=== PATIENT | male | born 1985 | race American Indian/Alaskan Native ===

== ENCOUNTER 2017-07-03 17:04 | Emergency (ER) | payer MEDICAID, OTHER ==
[2017-07-03 17:05] VITALS: BMI 34.2
--- NOTE | 2017-07-03 17:26 | ED PDOC ---
Arrival/HPI - General Time Seen by Provider: 07/03/17 17:25 Historian: Patient - History of Present Illness Narrative History of Present Illness (Text): 07/03/17 17:26 31 year old male, pmh including lower back pain, nkda, complaining of rt. flank pain started early this morning around 10am with no fall or trauma. aching and sharp pain, non-radiating, no pain medication taken at home, no urinary symptoms, no night sweat, no palpitation, no hematuria, no testicular pain, no abdominal pain, no other medical or psychological complaints. Past Medical History - Provider Review Nursing Documentation Reviewed: Yes - Infectious Disease Hx of Infectious Diseases: None - Tetanus Immunization Tetanus Immunization: Unknown - Past Medical History Past Medical History: No Previous - Psychiatric Hx Depression: No Hx Emotional Abuse: No Hx Physical Abuse: No Hx Substance Use: No - Surgical History Hx Cholecystectomy: Yes Hx Orthopedic Surgery: Yes (RIGHT 1ST DIGIT) Hx Tonsillectomy: Yes - Anesthesia Hx Anesthesia: No Hx Anesthesia Reactions: No Hx Malignant Hyperthermia: No - Suicidal Assessment Feels Threatened In Home Enviroment: No Family/Social History - Physician Review Nursing Documentation Reviewed: Yes Family/Social History: Unknown Family HX Smoking Status: Current Some Days Smoker Hx Alcohol Use: Yes (socially) Hx Substance Use: No Hx Substance Use Treatment: No Allergies/Home Meds Allergies/Adverse Reactions: Allergies No Known Allergies Allergy (Verified 07/03/17 17:23) Review of Systems - Review of Systems Constitutional: absent: Fatigue, Fevers Eyes: absent: Vision Changes ENT: absent: Hearing Changes Respiratory: absent: SOB, Cough Cardiovascular: absent: Chest Pain Gastrointestinal: absent: Abdominal Pain, Diarrhea, Nausea, Vomiting Musculoskeletal: Back Pain, Myalgias. absent: Arthralgias, Neck Pain, Joint Swelling Skin: absent: Rash, Pruritis Neurological: absent: Headache, Dizziness Psychiatric: absent: Anxiety, Depression, Suicidal Ideation Physical Exam Vital Signs Reviewed: Yes Vital Signs Temp Pulse Resp BP Pulse Ox 07/03/17 21:02 76 16 147/82 99 07/03/17 20:03 72 16 142/80 100 07/03/17 17:29 76 18 147/78 98 07/03/17 17:23 97.8 F 76 18 100 Temperature: Afebrile Blood Pressure: Normal Pulse: Regular Respiratory Rate: Normal Appearance: Positive for: Well-Appearing, Non-Toxic Pain Distress: Severe Mental Status: Positive for: Alert and Oriented X 3 - Systems Exam Head: Present: Atraumatic, Normocephalic Pupils: Present: PERRL Extroacular Muscles: Present: EOMI Conjunctiva: Present: Normal Mouth: Present: Moist Mucous Membranes Neck: Present: Normal Range of Motion Respiratory/Chest: Present: Clear to Auscultation, Good Air Exchange. No: Respiratory Distress, Accessory Muscle Use Cardiovascular: Present: Regular Rate and Rhythm, Normal S1, S2. No: Murmurs Abdomen: Present: Normal Bowel Sounds, Other (negative leblanc sign). No: Tenderness, Distention, Peritoneal Signs, Rebound, Guarding Back: Present: Normal Inspection, CVA Tenderness (+rt. cva), Paraspinal Tenderness (+ttp on the rt. paraspinal thoracic spine region), Other (no rash or vesicular lesion). No: Midline Tenderness, Pain with Leg Raise, Decubitus Ulcer Upper Extremity: Present: Normal Inspection, Other. No: Cyanosis, Edema Lower Extremity: Present: Normal Inspection. No: Edema Neurological: Present: GCS=15, CN II-XII Intact, Speech Normal, Motor Func Grossly Intact, Gait Normal, Memory Normal Skin: Present: Warm, Dry, Normal Color. No: Rashes Psychiatric: Present: Alert, Oriented x 3, Normal Insight, Normal Concentration Medical Decision Making ED Course and Treatment: 07/03/17 17:38 -labs/ua -CT abdomen and pelvis -IVF/toradol/valium -observe and reassess 07/03/17 18:31 -Labs are non-significant except wbc 14.3 (likely stress and pain induced) -Urinalysis show +WBC, IV rocephine ordered, -CT abdomen and pelvis show: Obstructing 4 mm calculus at right ureterovesical junction. Mild right hydroureteronephrosis. Mild fatty infiltration of the liver. -Flomax and strainer ordered, percocet ordered for him. -Pt.'s pain is well controlled, tolerating po solid and fluid, comfortable. -I offered admission for +UTI with wbc 14.3, IV rocephine infusion continuous and admission for urologist consult but the patient declined -Leaving Against Medical Advice (AMA): The patient refuses to stay in the Emergency Room (ER) to continue the care and wishes to leave the emergency department against my medical advice. Patient was told that staying in the ER is necessary and a full explanation of the reasons why was given, and understood by the patient with alert and oriented x4. The risk of leaving were explained in laymans term and including but not limited to pylonephritis with obstructing stone, renal failure and/or injury, organ failure, sepsis, fever, pain, worsening of condition, permanent disability and from an undiagnosed or untreated condition. The patient accepts these risks, and is in my judgment is competent and capable of understanding the clinical situation and explanation of the risk of leaving. The patient is able to verbally repeated me back the above explained risks and benefits back to me, and verbally expressed understanding. Patient was given the opportunity to ask questions and change mind. The patient was instructed regarding the best care for the present symptoms, and to follow up as soon as possible with the primary care doctor including specialist or return to the emergency department at any time for continuing care. -I checked the [facility] report, no indication of the narcotics prescribed for the past 12 months. -You leave against medical advice. You are given percocet, flomax, keflex, stay hydrated, bed rest, follow up with your own pmd and urologist/GI within 1 day, return to the ER for any new or worsening signs or symptoms. - Lab Interpretations Lab Results: 07/03/17 17:55 07/03/17 17:55 Lab Results 07/03/17 19:30: Urine Color Yellow, Urine Appearance Sl cloudy, Urine pH 7.0, Ur Specific [place] 1.020, Urine Protein Negative, Urine Glucose (UA) Negative, Urine Ketones Negative, Urine Blood Moderate H, Urine Nitrate Negative, Urine Bilirubin Negative, Urine Urobilinogen 0.2, Ur Leukocyte Esterase Negative, Urine RBC Tntc, Urine WBC 5 - 10, Ur Epithelial Cells 6 - 8, Urine Bacteria Mod 07/03/17 17:55: WBC 14.3 H, RBC 5.01, Hgb 13.9 L, Hct 42.3, MCV 84.4, MCH 27.7, MCHC 32.9, RDW 15.1 H, Plt Count 260, MPV 10.6, Gran % 82.9 H, Lymph % (Auto) 9.8 L, [place] % (Auto) 6.6 H, Eos % (Auto) 0.6 L, Baso % (Auto) 0.1, Gran # 11.82 H, Lymph # (Auto) 1.4, [place] # (Auto) 0.9 H, Eos # (Auto) 0.1, Baso # (Auto) 0.01 07/03/17 17:55: Sodium 142, Potassium 4.4, Chloride 102, Carbon Dioxide 28, Anion Gap 16, BUN 20, Creatinine 1.2, Est GFR ( Amer) > 60, Est GFR (Non- Af Amer) > 60, Random Glucose 97, Calcium 10.0, Total Bilirubin 0.6, AST 38, ALT 62 H, Alkaline Phosphatase 79, Total Protein 8.4 H, Albumin 4.2, Globulin 4.2, Albumin/Globulin Ratio 1.0 L - RAD Interpretation Radiology Orders: 07/03/17 17:35 ABD & PELVIS W/O PO OR IV CONT [CT] Stat FINDINGS: LOWER THORAX: Unremarkable. LIVER: Diffusely diminished attenuation consistent with fatty infiltration. Normal size and contour. No mass. No biliary ductal dilatation. GALLBLADDER AND BILE DUCTS: Status post cholecystectomy PANCREAS: Unremarkable. No gross lesion or ductal dilatation. SPLEEN: Unremarkable. ADRENALS: Unremarkable. No mass. KIDNEYS AND URETERS: Mild right hydronephrosis and hydroureter. Obstructing 4 mm calculus at right ureterovesical junction. There is distal right periureteric stranding. There is no perinephric fluid collection. There is no left hydronephrosis. There is no renal mass or calculus. VASCULATURE: Unremarkable. No aortic aneurysm. BOWEL: Unremarkable. No obstruction. No gross mural thickening. APPENDIX: Unremarkable. Normal appendix. PERITONEUM: Unremarkable. No free fluid. No free air. LYMPH NODES: Unremarkable. No enlarged lymph nodes. BLADDER: Unremarkable. REPRODUCTIVE: Unremarkable prostate BONES: No acute fracture. OTHER FINDINGS: None. IMPRESSION: Obstructing 4 mm calculus at right ureterovesical junction. Mild right hydroureteronephrosis. Mild fatty infiltration of the liver. 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 - Medication Orders Current Medication Orders: Discontinued Medications Diazepam (Valium) 5 mg PO ONCE ONE PRN Reason: Protocol Stop: 07/03/17 17:36 Last Admin: 07/03/17 18:03 Dose: 5 mg Sodium Chloride (Sodium Chloride 0.9%) 1,000 mls @ 999 mls/hr IV .Q1H1M STA Stop: 07/03/17 18:35 Last Admin: 07/03/17 18:03 Dose: 999 mls/hr eMAR Start Stop Document 07/03/17 18:03 HI (Rec: 07/03/17 18:03 HI [id number]) Intravenous Solution Start Date 07/03/17 Start Time 18:03 Sodium Chloride (Sodium Chloride 0.9%) 1,000 mls @ 250 mls/hr IV .Q4H ARMANDO Ceftriaxone Sodium (Rocephin 1 Gram Ivpb) 1 gm in 100 mls @ 200 mls/hr IVPB STAT STA PRN Reason: Protocol Stop: 07/03/17 20:45 Last Admin: 07/03/17 20:33 Dose: 200 mls/hr eMAR Start Stop Document 07/03/17 20:33 HI (Rec: 07/03/17 20:33 HI [id number]) Intravenous Solution Start Date 07/03/17 Start Time 20:33 Ketorolac Tromethamine (Toradol) 30 mg IVP STAT STA Stop: 07/03/17 18:16 Last Admin: 07/03/17 18:47 Dose: 30 mg MAR Pain Assessment Document 07/03/17 18:47 HI (Rec: 07/03/17 18:48 HI [id number]) Pain Reassessment Is this a pain reassessment? Yes Sleep Is patient sleeping during reassessment? No Presence of Pain Presence of Pain Yes Location Pain Location Body Site Back IVP Administration Document 07/03/17 18:47 HI (Rec: 07/03/17 18:48 HI [id number]) Charges for Administration # of IVP Administrations 1 Re-Assess: MAR Pain Assessment Document 07/03/17 19:47 HI (Rec: 07/03/17 20:03 [id number]-[id number]) Pain Reassessment Is this a pain reassessment? Yes Sleep Is patient sleeping during reassessment? No Presence of Pain Presence of Pain No Oxycodone/Acetaminophen (Percocet 5/325 Mg Tab) 1 tab PO STAT STA Stop: 07/03/17 18:31 Last Admin: 07/03/17 18:48 Dose: 1 tab MAR Pain Assessment Document 07/03/17 18:48 HI (Rec: 07/03/17 18:48 HI [id number]) Pain Reassessment Is this a pain reassessment? Yes Sleep Is patient sleeping during reassessment? No Presence of Pain Presence of Pain Yes Re-Assess: TANO Pain Assessment Document 07/03/17 19:48 HI (Rec: 07/03/17 20:03 [place] [id number]) Pain Reassessment Is this a pain reassessment? Yes Sleep Is patient sleeping during reassessment? 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 Disposition/Present on Arrival - Present on Arrival Any Indicators Present on Arrival: No History of DVT/PE: No History of Uncontrolled Diabetes: No Urinary Catheter: No History of Decub. Ulcer: No History Surgical Site Infection Following: None - Disposition Have Diagnosis and Disposition been Completed?: Yes Diagnosis: Ureterolithiasis, UTI (urinary tract infection), Non-compliant patient Disposition: AGAINST MEDICAL ADVICE Disposition Time: 17:39 Condition: STABLE Additional Instructions: -You leave against medical advice. You are given percocet, flomax, keflex, stay hydrated, bed rest, follow up with your own pmd and urologist/GI within 1 day, return to the ER for any new or worsening signs or symptoms. Prescriptions: Cephalexin [cephalexin] 500 mg PO TID #24 cap oxyCODONE/Acetaminophen [Percocet 5/325 mg Tab] 1 tab PO QID PRN #12 tab PRN Reason: Other Tamsulosin [Flomax] 0.4 mg PO DAILY #10 cap Referrals: Lesley Byrd MD [Primary Care Provider] - Follow up with primary Zach Griffin MD [Staff Provider] - Follow up with primary Forms: [employer] (Portuguese), WORK NOTE
[2017-07-03 17:27] VITALS: TEMP 97.8
[2017-07-03] MEDS ORDERED: Sodium Chloride 0.9% 1,000 ML IV STA (17:35)
[2017-07-03 18:12] LABS: BASO # 0.01 K/mm3 (0.0-2.0); BASO % 0.1 % (0.0-3.0); EOS # 0.1 (0.0-0.7); EOS % 0.6 % (1.5-5.0); GRAN # 11.82 (1.4-6.5); GRAN % 82.9 % (50.0-68.0); HEMOGLOBIN 13.9 g/dL (14.0-18.0); LYMPH # 1.4 (1.2-3.4); LYMPH % 9.8 % (22.0-35.0); MEAN CELL VOLUME 84.4 fl (80.0-105.0); MEAN CORPUSCULAR HEMOGLOBIN 27.7 pg (25.0-35.0); MEAN CORPUSCULAR HGB CONC 32.9 g/dl (31.0-37.0); MEAN PLATELET VOLUME 10.6 fl (7.0-11.0); MONO # 0.9 (0.1-0.6); MONO % 6.6 % (1.0-6.0); RBC 5.01 10^6/uL (3.5-6.1); RED CELL DISTRIBUTION WIDTH 15.1 % (11.5-14.5); WHITE BLOOD COUNT 14.3 10^3/ul (4.5-11.0)
[2017-07-03 18:18] LABS: ALBUMIN 4.2 g/dL (3.0-4.8); ALT/SGPT 62 U/L (7-56); AST/SGOT 38 U/L (17-59); BLOOD UREA NITROGEN 20 mg/dL (7-21); GFR AFRICAN-AMERICAN > 60; GFR NON-AFRICAN AMERICAN > 60
--- NOTE | 2017-07-03 18:21 | CT ---
PROCEDURE: CT Abdomen and Pelvis without intravenous contrast HISTORY: rt. flank pain COMPARISON: None. TECHNIQUE: Without contrast.. Contrast Dose: 0 Radiation dose: Total exam DLP = 1412.34 mGy-cm. This CT exam was performed using one or more of the following dose reduction techniques: Automated exposure control, adjustment of the mA and/or kV according to patient size, and/or use of iterative reconstruction technique. FINDINGS: LOWER THORAX: Unremarkable. LIVER: Diffusely diminished attenuation consistent with fatty infiltration. Normal size and contour. No mass. No biliary ductal dilatation. GALLBLADDER AND BILE DUCTS: Status post cholecystectomy PANCREAS: Unremarkable. No gross lesion or ductal dilatation. SPLEEN: Unremarkable. ADRENALS: Unremarkable. No mass. KIDNEYS AND URETERS: Mild right hydronephrosis and hydroureter. Obstructing 4 mm calculus at right ureterovesical junction. There is distal right periureteric stranding. There is no perinephric fluid collection. There is no left hydronephrosis. There is no renal mass or calculus. VASCULATURE: Unremarkable. No aortic aneurysm. BOWEL: Unremarkable. No obstruction. No gross mural thickening. APPENDIX: Unremarkable. Normal appendix. PERITONEUM: Unremarkable. No free fluid. No free air. LYMPH NODES: Unremarkable. No enlarged lymph nodes. BLADDER: Unremarkable. REPRODUCTIVE: Unremarkable prostate BONES: No acute fracture. OTHER FINDINGS: None. IMPRESSION: Obstructing 4 mm calculus at right ureterovesical junction. Mild right hydroureteronephrosis. Mild fatty infiltration of the liver.
[2017-07-03] MEDS ORDERED: Oxycodone/Acetaminophen 5/325 mg Tab PO STA (18:30)
[2017-07-03] MEDS ORDERED: Sodium Chloride 0.9% 1,000 ML IV SCH (18:45)
[2017-07-03 19:52] LABS: URINE BILIRUBIN NEGATIVE (NEGATIVE); URINE BLOOD MODERATE (NEGATIVE); URINE GLUCOSE (UA) NEGATIVE (NEGATIVE); URINE LEUKOCYTE ESTERASE NEGATIVE Leu/uL (NEGATIVE); URINE NITRATE NEGATIVE (NEGATIVE); URINE PROTEIN NEGATIVE mg/dL (<30 mg/dL); URINE UROBILINOGEN 0.2 E.U./dL (<1 E.U./dL)
[2017-07-03 19:56] LABS: URINE APPEARANCE SL CLOUDY (CLEAR); URINE COLOR YELLOW (YELLOW)
[2017-07-03 20:04] VITALS: RESP 16
[2017-07-03 20:07] LABS: URINE BACTERIA MOD (NEG); URINE RBC TNTC /hpf (0-2)
[2017-07-03] MEDS ORDERED: cefTRIAXone 1 gm 1 GM/100 ML BAG IVPB STA (20:16)
[2017-07-03 21:07] VITALS: BP 147/82; PULSE 76; O2SAT 99
== END 2017-07-03 21:02 | disposition left against medical advice (07) ==
LOC: ED 17:04
DX: N20.1 Calculus of ureter (principal); N39.0 Urinary tract infection, site not specified; Z91.19 Patient's noncompliance with other medical treatment and regimen
CPT/HCPCS: 74176; 80053; 81001; 85025; 87086; 96374; 99283; J0696; J1885; J7040